=== PATIENT | male | born 1960 | race Two or more races ===

== ENCOUNTER 2018-05-01 05:50 | Day surgery (SDC) | payer OTHER ==
[~2018-05-01 05:50] MED LIST: TRILIPIX45 MG PO; VYTORIN 10-401 EACH PO
[2018-05-01] MEDS ORDERED: PERCOCET 5-3251 EACH PO (13:47)
== END 2018-05-01 14:52 | disposition home or self-care (01) ==
LOC: CIR.AMB 05:50
DX: D17.1 Benign lipomatous neoplasm of skin and subcutaneous tissue of trunk (principal)